=== PATIENT | female | born 1945 ===

== ENCOUNTER → 2024-09-18 08:03 | Outpatient (REF) | payer OTHER, SELFPAY | LOC: MRI 3T 08:03 | PROVIDERS: ATTENDING PHYSICIAN Orthopaedic Surgery; FAMILY PHYSICIAN Internal Medicine | DX: M75.100 Unspecified rotator cuff tear or rupture of unspecified shoulder, not specified as traumatic (principal) | CPT/HCPCS: 73221 ==